=== PATIENT | male | born 1985 | race Two or more races ===

== ENCOUNTER 2022-10-04 11:10 | Emergency (ER) | payer OTHER ==
[~2022-10-04] VITALS: Ht 188 cm; Wt 131.1 kg
[2022-10-04] MEDS ORDERED: ZITHROMAX500 MG PO (15:41)
[2022-10-04] MEDS ORDERED: FLONASE ALLERG9.9 ML NASAL (15:42)
[2022-10-04] MEDS ORDERED: ZYRTEC10 M3 PO (15:42)
[2022-10-04] MEDS ORDERED: OSEL75CA PO (15:49)
== END 2022-10-04 15:54 | disposition home or self-care (01) ==
LOC: ER 11:10
DX: J10.1 Influenza due to other identified influenza virus with other respiratory manifestations (principal); Z20.822 Contact with and (suspected) exposure to COVID-19